=== PATIENT | female | born 1990 | race Caucasian/White ===

== ENCOUNTER → 2016-11-10 | Outpatient (CLI) | payer OTHER ==
[~2016-11-10] MED LIST: BCPILLS PO; IBUP-103 PO; LANS30CA12 PO; ONDA4TAB10 SL
--- NOTE | 2016-11-10 12:48 | DIAGNOSTIC IMAGING REPORT ---
BILIARY ULTRASOUND CLINICAL HISTORY: K82.9 Gallbladder [id number] Abdominal [id number] Acid refl COMPARISON STUDY: 12/09/2015 FINDINGS: The pancreas appears sonographically normal. The gallbladder appears sonographically normal. There is no ductal dilatation. The common bile duct measures 3 mm. There is no right-sided hydronephrosis. There is a 6 1 cm echogenic focus within the right lobe of the liver. This is consistent with although not specific for a hepatic hemangioma. This remains unchanged in size from the prior December 2015 study. IMPRESSION: 1. Ultrasonographically normal gallbladder and pancreas 2. No ductal dilatation 3. 1 cm echogenic focus within the right lobe of the liver, likely representing a hepatic hemangioma. Electronically signed by: Anival Davies M.D. 11/10/2016 12:46 PM Dictated Date/Time: 11/10/2016 8:36 AM
== END | disposition home or self-care (01) ==
LOC: C.ULTR 08:13
PROVIDERS: ATTEND Internal Medicine
DX: D18.03 Hemangioma of intra-abdominal structures (principal); K21.9 Gastro-esophageal reflux disease without esophagitis; K82.9 Disease of gallbladder, unspecified; R14.0 Abdominal distension (gaseous)

== ENCOUNTER → 2017-08-20 | Outpatient (CLI) | payer OTHER ==
[~2017-08-20] MED LIST changes: -ONDA4TAB10 SL
--- NOTE | 2017-08-20 16:06 | DIAGNOSTIC IMAGING REPORT ---
CHEST 2 VIEWS ROUTINE CLINICAL HISTORY: Chronic constipation. COMPARISON STUDY: Chest radiograph December 15, 2015. FINDINGS: Lung volumes are normal. Lungs are clear. No pneumothorax or pleural effusion is present. Cardiomediastinal silhouette is normal. Pulmonary vascularity is normal. No significant abnormality is identified within visualized portions of the upper abdomen by radiography. IMPRESSION: No acute cardiopulmonary findings. Electronically signed by: Hugo Higgins M.D. 08/20/2017 4:04 PM Dictated Date/Time: 08/20/2017 4:03 PM
== END | disposition home or self-care (01) ==
LOC: C.RAD 15:31
PROVIDERS: ATTEND Physician Assistant
DX: K59.09 Other constipation (principal); R05 Cough

== ENCOUNTER → 2017-09-15 | Outpatient (CLI) | payer OTHER ==
--- NOTE | 2017-09-15 13:08 | DIAGNOSTIC IMAGING REPORT ---
PA CHEST WITH LEFT-SIDED RIB SERIES CLINICAL HISTORY: Left-sided chest wall pain. No reported history of trauma. FINDINGS: A PA chest radiograph with 4 additional views may left-sided rib series is compared to study dated 08/20/2017. The cardiomediastinal silhouette is unremarkable. The lungs and pleural spaces are clear. No pneumothorax is seen. There is no radiographic evidence of left-sided rib fracture on the rib series. The remainder of the bony thorax is grossly intact. IMPRESSION: 1. The lungs are clear. 2. There is no radiographic evidence of left-sided rib fracture as clinically queried. Electronically signed by: Henry Amaya M.D. 09/15/2017 1:06 PM Dictated Date/Time: 09/15/2017 1:05 PM
== END | disposition home or self-care (01) ==
LOC: C.RAD1850 12:10
PROVIDERS: ATTEND Physician Assistant
DX: R07.89 Other chest pain (principal)

== ENCOUNTER → 2017-10-06 | Outpatient (CLI) | payer OTHER | END | disposition home or self-care (01) | LOC: C.PAPS 18:31 | PROVIDERS: ATTEND Physician Assistant | DX: Z01.419 Encounter for gynecological examination (general) (routine) without abnormal findings (principal) ==

== ENCOUNTER 2021-09-12 09:28 | Observation (INO) ==
--- NOTE | 2021-09-12 10:07 | History & Physical Report ---
Date of Service September 12, 2021 Assessment & Plan (1) 33 weeks gestation of : Plan: admit, routine labs, gbs pending amp 2g q6h, azithromycin 1gr q24 betamethasone 12mf im stat us ordered (2) premature rupture of membranes (PPROM) delivered, current hospitalization: Plan: [facility] [place] on diversion Deyanira accepted transfer then called back and did not have space on LD for patient Working on transfer to another facility at this time Admission and Anticipated Discharge Date Admission Date: 09/12/2021 History of Present Illness Chief Complaint: Leaking Primary Care Provider: Rain Cano MD Patient is a pleasant 31-year-old at 33 weeks and 2 days dated by last menstrual period consistent with 9-week ultrasound who presents to labor and delivery for an ongoing leaking of fluid since this morning at 730. Did state that she had increase in discharge last night, but not sure when she ruptured. Thinks she lost her mucous plug earlier this morning as well. Denies any bleeding, denies any contractions. Notes good movement. Denies headache, blurry vision, right upper quadrant or epigastric pain otherwise feeling well. Patient has been managed this for diet-controlled gestational diabetes, managed by [facility]. She was planned to have appointment earlier today to discuss if she need to be going onto medication for her gestational diabetes. Other complications this is overweight, antepartum anemia. Established care with Mamadou at 7 weeks gestation and had appropriate care Allergies Allergy/AdvReac Type Severity Reaction Status Date / Time naproxen AdvReac Mild GI SYMPTOMS Verified 02/25/18 12:29 Home Medications Medication Instructions Recorded Confirmed Type ferrous sulfate 325 mg (65 mg 325 mg PO DAILY 09/12/21 09/12/21 History iron) tablet (iron) prenat.vits,kelsey,vgu-svnb-lvfaw 1 tab PO DAILY 09/12/21 09/12/21 History Patient History Surgical History (Updated 09/12/21 @ 10:13 by Kirsten Irving RN) H/O oral surgery OB History Review of Systems All systems reviewed & are unremarkable except as noted in HPI & below Physical Exam Constitutional: WD/WN, vitals as above Respiratory: normal respiratory effort, lungs clear to auscultation Cardiovascular: RRR, no murmur, no edema Gastrointestinal (Abdomen): normal bowel sounds, soft, nontender, no hepatosplenomegaly vertex Genitourinary: no vaginal lesions, no adnexal mass Sterile speculum exam: Noted clear amniotic fluid, positive pooling, positive nitrazine, Valsalva positive Cervix appears approximately 0.5 cm dilated with hair at os Cervical exam not done to avoid introduction of infection Results & Data ([facility]) Vital Signs (Past 12 Hours) Vital Signs Temp Pulse Resp BP 09/12/21 09:51 37.1 C 87 20 111/69 Monitoring External Monitor Baseline 140, Moderate variability, no accelerations, no decelerations, category 1 Tocodynamometer Irritability
[2021-09-12] MEDS ORDERED: BETAMETH SOD PHOS/ACETATE IA 6 MG/ML IM STA (10:09)
[2021-09-12] MEDS ORDERED: AZITHROMYCIN 250 MG TAB PO SCH (10:15)
[2021-09-12] MEDS ORDERED: OXYTOCIN 30 UNITS/500 ML BAG IV PRN ×2 (10:17→10:41)
[2021-09-12] MEDS ORDERED: LACTATED RINGER'S 1,000 ML IV PRN ×2 (10:17→10:41)
[2021-09-12] MEDS ORDERED: AMPICILLIN 2,000 MG in SODIUM CHLORIDE 0.9% 50 ML IV ONE (10:30)
[2021-09-12 10:44] LABS: Hematocrit (blood only) 34.5 % (37-47); Hemoglobin 11.4 g/dL (12.0-16.0); Mean Corpuscular Hemoglobin 31.1 pg (25-34); Mean Corpuscular Volume 94.3 fL (80-100); Mean Platelet Volume 10.5 fL (7.4-10.4); Platelet Count 125 K/uL (130-400); RDW Coefficient of Variation 13.7 % (11.5-14.5); RDW Standard Deviation 47.1 fL (36.4-46.3); Red Blood Count 3.66 M/uL (4.2-5.4); White Blood Count 7.25 K/uL (4.8-10.8)
[2021-09-12 11:03] LABS: BUN Creatinine Ratio 11.1 (10-20); Blood Urea Nitrogen 5 mg/dl (7-18); Calcium 8.4 mg/dl (8.5-10.1); Carbon Dioxide 23 mmol/L (21-32); Chloride 109 mmol/L (98-107); Est GFR (African American) > 150.0 ml/min; Est GFR (Non-African American) 132.5 ml/min; Glucose 87 mg/dl (70-99); Potassium 3.6 mmol/L (3.5-5.1); Sodium 139 mmol/L (136-145)
--- NOTE | 2021-09-12 12:23 | Ultrasound Report ---
ULTRASOUND OBSTETRICAL LIMITED CLINICAL HISTORY: Premature rupture of membranes. Assess position. COMPARISON STUDY: No priors. FINDINGS: Limited portable real-time grayscale and color Doppler sonography of the fetus is performed. There is a single live intrauterine gestation with a heart rate of 133 bpm. Positioning is cephalic. The amni otic fluid volume appears diminished. The placenta is anterior and normal as visualized. Femoral length measures 6.46 cm corresponding to an estimated age of 33 weeks 2 days. Abdominal circumference measures 29.17 cm corresponding to an estimated age of 33 weeks 1 day. Head circumference measures 30.59 cm corresponding to an estimated age of 34 weeks 0 days. Biparietal diameter measures 8.44 cm corresponding to an estimated age of 34 weeks 0 days. Aggregate estimated age is 33 weeks and 2 days +/- 1 week Estimated weight is 2182 g +/- 327 g. IMPRESSION: 1. There is a single live intrauterine gestation with an estimated age of 33 weeks and 2 days. 2. The amniotic fluid volume appears diminished. 3. Note that this does not constitute a dedicated anatomic scan. Electronically signed by: Henry Amaya M.D. 09/12/2021 12:22 PM
[2021-09-13] MEDS ORDERED: PRENATAL VITAMIN 1 TAB PO SCH (09:00)
[2021-09-13] MEDS ORDERED: FERROUS SULFATE 325 MG TAB PO SCH (09:00)
== END 2021-09-12 13:00 | disposition short-term general hospital (02) ==
LOC: OPB 09:28 → 4S2 09:29 → INTOOBSV 10:42 → 4S2 10:42